=== PATIENT | female | born 1955 | race Caucasian/White ===

== ENCOUNTER 2019-10-21 20:53 | Emergency (ER) | payer OTHER, MEDICAID ==
[~2019-10-21] VITALS: Ht 157.5 cm; Wt 74.1 kg
--- NOTE | 2019-10-21 21:04 | NUR ---
EKG IN PROGRESS
--- NOTE | 2019-10-21 21:12 | NUR ---
PATIENT NELLY CORNELIUS FOR LIGHTHEADEDNESS, [facility] AND WAS DX WITH UTI. PATIENT TAKING PHONE CALL AND AMBULATING IN [place] WITH STNADBY ASSIST. PATIENT IGNORING NURSE. NO EYE CONTACT, NOT ANSWERING QUESTIONS, STILL ON PHONE REFUSINGTO HANG UP TO DO ASSESSMENT OR GIVE URINE. Addendum: 10/21/19 at 2123 by JENNA CORRECTION: PATIENT WAS PREVIOUSLY SEEN AT [facility].
--- NOTE | 2019-10-21 21:17 | NUR ---
PATIENT AMBULATED TO RESTROOM, URINE SAMPLE OBTAINED.
[2019-10-21 21:43] LABS: MICROSCOPIC NOT IND
[2019-10-21 21:48] LABS: CULTURE INDICATED? NO
--- NOTE | 2019-10-21 21:58 | NUR ---
PRECEPTOR RN: PT AMBULATED STEADILY TO RESTROOM WITH STAND BY ASSISTANCE. PT DENIES INCREASE IN WEAKNESS/DIZZINESS WITH ACTIVITY
[2019-10-21 22:10] LABS: BASOPHILS # (AUTO) 0.02 x10^3/uL (0-0.1); BASOPHILS % (AUTO) 1 % (0-1); EOSINOPHILS # (AUTO) 0.13 x10^3/uL (0-0.4); EOSINOPHILS % (AUTO) 3 % (1-7); LYMPHOCYTES # (AUTO) 1.01 x10^3/uL (1-3.4); LYMPHOCYTES % (AUTO) 21 % (22-44); MD NO; MEAN CORPUSCULAR HEMOGLOBIN 30.3 pg (27.0-34.8); MEAN CORPUSCULAR HGB CONC 32.9 g/dL (32.4-35.8); MEAN PLATELET VOLUME 8.3 fL (7.4-10.4); MONOCYTES # (AUTO) 0.41 x10^3/uL (0.2-0.8); MONOCYTES % (AUTO) 8 % (2-9); NEUTROPHILS # (AUTO) 3.27 x10^3/uL (1.8-6.8); NEUTROPHILS % (AUTO) 68 % (42-75); PLATELET COUNT 213 x10^3/uL (130-400); RED BLOOD COUNT 4.61 x10^6/uL (3.82-5.3); RED CELL DISTRIBUTION WIDTH 15.1 % (9.6-15.2)
[2019-10-21 22:13] LABS: ALANINE AMINOTRANSFERASE 26 U/L (12-78); ALBUMIN 3.8 g/dL (3.4-5.0); ANION GAP 7 mmol/L (5-15); CALCIUM 9.3 mg/dL (8.5-10.1); CHLORIDE 110 mmol/L (98-107); CREATININE 1.24 mg/dL (0.55-1.02)
[2019-10-21 22:18] LABS: ALKALINE PHOSPHATASE 111 U/L (45-117); BILIRUBIN,TOTAL 0.5 mg/dL (0.2-1.0); T4 (THYROXINE) 8.7 mcg/dL (4.8-13.9); TOTAL PROTEIN 7.5 g/dL (6.4-8.2); TROPONIN I < 0.015 ng/mL (0.000-0.045)
[2019-10-21 22:39] VITALS: BP 105/53
--- NOTE | 2019-10-21 22:46 | NUR ---
PATIENT SLEEPING, RESPIRATIONS EVEN AND UNLABORED, VSS, NAD, CALL LIGHT IN REACH.
--- NOTE | 2019-10-21 23:18 | NUR ---
Patient/Caregiver given discharge instructions and they have confirmed that they understand the instructions. Patient ambulatory with steady gait.
== END 2019-10-21 23:20 | disposition home or self-care (01) ==
LOC: ED 22:30
DX: R42 Dizziness and giddiness (principal); R55 Syncope and collapse; Z90.49 Acquired absence of other specified parts of digestive tract
CPT/HCPCS: 36415; 80053; 81003; 83735; 84436; 84443; 84484; 85025; 93005; 99284